=== PATIENT | female | born 1960 | race African-American/Black ===

== ENCOUNTER 2017-01-10 17:01 | Inpatient (IN) ==
[2017-01-10] MEDS ORDERED: ASPIRIN PO STA (17:11)
[2017-01-10] MEDS ORDERED: NITROGLYCERIN SL PRN (17:11)
[2017-01-10 17:42] LABS: MANUAL DIFF NEEDED? NO
--- NOTE | 2017-01-10 17:43 | ED EKG INTERP ---
EKG Interpretation - EKG Time of EKG reading by physician:: 17:11 EKG Read and Signed by:: Darrion Morelos EKG Interpretation (*Must complete 3 of following elements*): Abnormal ( inferior infarct age undetermined ; anterior infarct age undetermined; ST and Marked T wave abnormality consider lateral ischemia) Rate: 54 Rhythm: sinus tiago with fusion complexes [place]: left QRS: normal Attestation - Scribe Verification/Attestation Scribe:: Taylor Cheema Acting as Scribe for:: Darrion Morelos Scribe documention review:: This chart was documented by a scribe and accurately reflects the service the provider performed and the decisions made by the provider. Physician Attestation - Physician Attestation I, the provider, attest to the following statement:: Darrion Morelos Physician documentation Attestation:: This documentation recorded by the scribe accurately reflects the service I personally performed and the decisions made by me.
[2017-01-10 17:50] LABS: BASO% 0.5 % (0.0-0.8); EOS# 0.16 X1000 (0.0-0.7); EOS% 2.5 % (0.0-10.0); HEMATOCRIT 40.9 % (37.0-47.0); HEMOGLOBIN 13.7 g/dL (12.0-16.0); LYMPH# 3.08 X1000 (1.2-3.4); LYMPH% 48.6 % (20.5-51.1); MCH 28.9 PG (27-31); MCHC 33.5 g/dL (33-37); MCV 86.3 FL (81-99); MONO# 0.62 X1000 (0.11-0.59); MONO% 9.8 % (1.7-9.3); MPV 9.8 FL (7.4-10.4); NEUT% 38.6 % (42.2-75.2); PLT 219 X1000 (130-400); RBC 4.74 XMIL (4.2-5.4)
[2017-01-10 18:04] LABS: INR 1.02; PROTIME 10.4 Seconds (9.2-11.7); PTT 24.7 Seconds (22.0-36.0)
[2017-01-10 18:13] LABS: AGAP 18; ALBUMIN 4.3 g/dL (3.5-5.0); ALKALINE PHOSPHATASE 72 U/L (32-104); BUN 16 mg/dL (8-22); CHLORIDE 101 mmol/L (98-107); COSMO 281; GOT 47 U/L (10-30); GPT 30 U/L (10-36); MAGNESIUM 1.9 mg/dL (1.5-2.7); POTASSIUM 3.4 mmol/L (3.5-5.1); SODIUM 140 mmol/L (136-145); TCO2 21 mmol/L (25-35); TOTAL BILIRUBIN 0.44 mg/dL (0.20-1.00); TOTAL PROTEIN 7.6 g/dL (6.3-8.3)
[2017-01-10 18:14] LABS: CK PROFILE 334 U/L (24-173)
[2017-01-10 18:31] LABS: CK INDEX 6.4 (0.0-2.5); CK-MB 21.43 ng/mL (0.0-5.0)
--- NOTE | 2017-01-10 18:48 | PROVIDER DOCUMENTATION ---
HPI-Chest Pain <Willy Barbosa - Last Filed: 01/10/17 19:15> - General Source: patient <Leticia Sprague - Last Filed: 01/10/17 19:21> - General Chief Complaint: Chest Pain Stated Complaint: CP Time Seen by Provider: 01/10/17 18:37 Allergies/Adverse Reactions: Patient Allergies Allergy/AdvReac Type Severity Reaction Status Date / Time No Known Allergies Allergy Verified 04/19/14 18:31 Home Medications: Home Medication List Medication Instructions Recorded Confirmed Last Taken Type Ketorolac [Toradol] 10 mg PO 4XDAY PRN PRN #20 tablet 04/19/14 Unknown Rx LISINOpril [Prinivil] 10 mg PO DAILY #30 tablet 04/19/14 Unknown Rx Tramadol [Ultram] 50 mg PO Q6H PRN PRN #20 tablet 04/19/14 Unknown Rx - History of Present Illness-CP Nature of Presenting Problem: 56 y/o F smoker with history of HTN, HLD, ?MA (2012) history presents with complaint of central chest pain radiating to back and left arm that began yesterday. Pain is described as 8/10 soreness. PPain began around 6am upon awakening while lying in bed. She went on to work and worked a 12 hour shift. Pain lasted all day until she laid down that night. Patient reports increased emotional stress yesterday. Pain began again this morning when getting out of bed this morning and has been constant again all day. She left work early today due to chest pain. 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 Reports SOB with exertion x years. No aggravating or relieving factors. Last stress test 2 years ago normal. Never had a cardiac cath. 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 Current PCP is Dr. Mendoza. (Leticia Sprague) Review of Systems - Adult - REVIEW OF SYSTEMS - ADULT Constitutional: reports: no symptoms reported. denies: chills, fever Eyes: reports: no symptoms reported Ears, Nose, Mouth & Throat: reports: no symptoms reported Cardiovascular: reports: see HPI Respiratory: reports: see HPI Gastrointestinal: reports: no symptoms reported. denies: nausea, vomiting Genitourinary: reports: no symptoms reported Musculoskeletal: reports: back pain Integumentary: reports: no symptoms reported Neurological: reports: no symptoms reported. denies: dizziness/vertigo, headache/migraines Psychiatric: reports: no symptoms reported Endocrine: reports: no symptoms reported Hematologic/Lymphatic: reports: no symptoms reported Allergic/Immunologic: reports: no symptoms reported All Other Systems: Reviewed and Negative <Leticia Sprague - Last Filed: 01/10/17 19:21> Past History - Adult - PAST MEDICAL HISTORY-ADULT Review of Records: reports: Nursing Assessment Review, Medications Reviewed Major Childhood Illnesses: reports: denies history Cardiovascular: reports: HTN, hyperlipidemia - PRIOR SURGERIES/PROCEDURES Surgical/Procedure History: reports: none - PRIOR HOSPITALIZATIONS Prior Hospitalizations: reports: none - IMMUNIZATION STATUS Childhood Immunizations: See Nurse Assessment Flu Vaccine: See Nurse Assessment - FAMILY HISTORY Family History: reviewed, not pertinent <Leticia Sprague - Last Filed: 01/10/17 19:21> Physical Exam-General - PHYSICAL EXAM-ADULT Initial Vital Signs Reviewed: Yes - CONSTITUTIONAL General Appearance: appears well, alert, no apparent distress - EYES Eyes: PERRL/EOMI, pink conjunctivae - HEAD, EARS, NOSE, MOUTH & THROAT HENMT: normocephalic/atraumatic, moist mucous membranes - NECK Neck: non-tender, full range of motion, supple, normal inspection - RESPIRATORY Respiratory: chest non-tender, lungs clear, normal breath sounds, no pleuratic chest pain, no respiratory distress, no accessory muscle use - CARDIOVASCULAR Cardiovascular: normal peripheral pulses, regular rate, rhythm, no edema, no gallop, no JVD, no murmur - GASTROINTESTINAL (ABDOMEN) Abdominal Exam: normal bowel sounds, non tender, soft - SKIN Integumentary: normal color, normal turgor, warm/dry - NEUROLOGIC Neurologic: grossly normal, no motor/sensory deficits - PSYCHIATRIC Psych/Mental Status: normal mood/affect, normal thought content, normal thought process, oriented x 3 <Leticia Sprague - Last Filed: 01/10/17 19:21> Progress - CONSULTS/PCP/HOSPITALIST Notification #1 *Consult/PCP/Hospitalist*: Dr Blevins (Dr Mendoza customer care consultant ) Time Discussed: 19:02 Reason/Comments: admitt Consult Disposition: other (Deferred to the Hospitalist) #2 Consult: Dr Greer (Cardilogist) Time Discussed: 19:17 Reason/Comments: Plan of care Consult Disposition: Admit (Admit to hospitalist and he will consult) <Willy Barbosa - Last Filed: 01/10/17 19:15> - XRAY 1 XRAY Study: Chest XRAY Interpretation: NAP <Leticia Sprague - Last Filed: 01/10/17 19:21> - PLAN OF CARE/RESULTS Progress/Plan/Lab Results: Laboratory Tests 01/10/17 01/10/17 01/10/17 17:15 17:15 17:15 WBC 6.34 RBC 4.74 Hgb 13.7 Hct 40.9 MCV 86.3 MCH 28.9 MCHC 33.5 RDW Std Deviation 14.1 Plt Count 219 MPV 9.8 Immature Gran % (Auto) 0.0 Neut % (Auto) 38.6 L Lymph % (Auto) 48.6 [place] % (Auto) 9.8 H Eos % (Auto) 2.5 Baso % (Auto) 0.5 Immature Gran # (Auto) 0.00 Neut # (Auto) 2.45 Lymph # (Auto) 3.08 [place] # (Auto) 0.62 H Eos # (Auto) 0.16 Baso # (Auto) 0.03 PT INR PTT (Actin FS) D-Dimer 0.15 Sodium 140 Potassium 3.4 L Chloride 101 Carbon Dioxide 21 L Anion Gap 18 BUN 16 Creatinine 0.7 Estimated GFR/1.73 m2 > 60 BUN/Creatinine Ratio 23 Glucose 97 Calculated Osmolality 281 Calcium 9.0 Magnesium 1.9 Total Bilirubin 0.44 AST 47 H ALT 30 Alkaline Phosphatase 72 Creatine Kinase 334 H Creatine Kinase Index 6.4 H CK-MB (CK-2) 21.43 H Troponin T [id number]-J-Vtvvxhbyvjb Pept Total Protein 7.6 Albumin 4.3 Globulin 3.3 Albumin/Globulin Ratio 1.3 01/10/17 01/10/17 01/10/17 17:15 17:15 17:15 WBC RBC Hgb Hct MCV MCH MCHC RDW Std Deviation Plt Count MPV Immature Gran % (Auto) Neut % (Auto) Lymph % (Auto) [place] % (Auto) Eos % (Auto) Baso % (Auto) Immature Gran # (Auto) Neut # (Auto) Lymph # (Auto) [place] # (Auto) Eos # (Auto) Baso # (Auto) PT 10.4 INR 1.02 PTT (Actin FS) 24.7 D-Dimer Sodium Potassium Chloride Carbon Dioxide Anion Gap BUN Creatinine Estimated GFR/1.73 m2 BUN/Creatinine Ratio Glucose Calculated Osmolality Calcium Magnesium Total Bilirubin AST ALT Alkaline Phosphatase Creatine Kinase Creatine Kinase Index CK-MB (CK-2) Troponin T 0.343 H* Hxn-R-Svadwqwbnzv Pept 1129 H Total Protein Albumin Globulin Albumin/Globulin Ratio Orders Category Date Time Status Cardiac Monitoring DIRECTED Care 01/10/17 17:11 Active Saline Loc NOW Care 01/10/17 17:11 Active CHEST-2 VIEWS [RAD] Stat Exams 01/10/17 17:11 Taken CBC WITH ELECTRONIC DIFF [HEME] Stat Lab 01/10/17 17:15 Completed CK PROFILE [SP CHEM] Stat Lab 01/10/17 17:15 Completed COMPREHENSIVE METABOLIC PANEL [CHEM] Stat Lab 01/10/17 17:15 Completed D-DIMER [CHEM] Stat Lab 01/10/17 17:15 Completed MAGNESIUM [CHEM] Stat Lab 01/10/17 17:15 Completed PRO B-NATRIURETIC PEPTIDE Stat Lab 01/10/17 17:15 Completed PROTIME WITH INR [COAG] Stat Lab 01/10/17 17:15 Completed PTT [COAG] Stat Lab 01/10/17 17:15 Completed TROPONIN T Stat Lab 01/10/17 17:15 Completed Aspirin Med 01/10/17 17:11 Discontinued 325 mg PO STAT STA Metoprolol [Lopressor] Med 01/10/17 18:58 Discontinued 5 mg IV NOW ONE Morphine Med 01/10/17 18:58 Discontinued 4 mg IV NOW ONE Nitroglycerin Med 01/10/17 19:01 Stop Req 0.5 inch TOP NOW ONE Nitroglycerin Med 01/10/17 19:04 Discontinued 1 inch TOP NOW ONE Nitroglycerin Sl [Nitroglycerin] Med 01/10/17 17:11 Discontinued 0.4 mg SL Q5M PRN PRN EKG [EKG] Stat Ther 01/10/17 17:11 Ordered Vital Signs Temp Pulse Resp BP Pulse Ox 01/10/17 18:43 67 19 152/102 100 01/10/17 17:09 98.6 F 58 L 18 145/82 100 No Known Allergies Allergy (Verified 04/19/14 18:31) Ketorolac [Toradol] 10 mg PO 4XDAY PRN PRN #20 tablet 04/19/14 LISINOpril [Prinivil] 10 mg PO DAILY #30 tablet 04/19/14 Tramadol [Ultram] 50 mg PO Q6H PRN PRN #20 tablet 04/19/14 Laboratory 01/10/17 01/10/17 01/10/17 17:15 17:15 17:15 WBC RBC Hgb Hct MCV MCH MCHC RDW Std Deviation Plt Count MPV Immature Gran % (Auto) Neut % (Auto) Lymph % (Auto) [place] % (Auto) Eos % (Auto) Baso % (Auto) Immature Gran # (Auto) Neut # (Auto) Lymph # (Auto) [place] # (Auto) Eos # (Auto) Baso # (Auto) PT 10.4 INR 1.02 PTT (Actin FS) 24.7 D-Dimer Sodium Potassium Chloride Carbon Dioxide Anion Gap BUN Creatinine Estimated GFR/1.73 m2 BUN/Creatinine Ratio Glucose Calculated Osmolality Calcium Magnesium Total Bilirubin AST ALT Alkaline Phosphatase Creatine Kinase Creatine Kinase Index CK-MB (CK-2) Troponin T 0.343 H* Dsv-S-Gfrivoxfdcg Pept 1129 H Total Protein Albumin Globulin Albumin/Globulin Ratio 01/10/17 01/10/17 01/10/17 17:15 17:15 17:15 WBC 6.34 RBC 4.74 Hgb 13.7 Hct 40.9 MCV 86.3 MCH 28.9 MCHC 33.5 RDW Std Deviation 14.1 Plt Count 219 MPV 9.8 Immature Gran % (Auto) 0.0 Neut % (Auto) 38.6 L Lymph % (Auto) 48.6 [place] % (Auto) 9.8 H Eos % (Auto) 2.5 Baso % (Auto) 0.5 Immature Gran # (Auto) 0.00 Neut # (Auto) 2.45 Lymph # (Auto) 3.08 [place] # (Auto) 0.62 H Eos # (Auto) 0.16 Baso # (Auto) 0.03 PT INR PTT (Actin FS) D-Dimer 0.15 Sodium 140 Potassium 3.4 L Chloride 101 Carbon Dioxide 21 L Anion Gap 18 BUN 16 Creatinine 0.7 Estimated GFR/1.73 m2 > 60 BUN/Creatinine Ratio 23 Glucose 97 Calculated Osmolality 281 Calcium 9.0 Magnesium 1.9 Total Bilirubin 0.44 AST 47 H ALT 30 Alkaline Phosphatase 72 Creatine Kinase 334 H Creatine Kinase Index 6.4 H CK-MB (CK-2) 21.43 H Troponin T Ysf-D-Povbjicwmpc Pept Total Protein 7.6 Albumin 4.3 Globulin 3.3 Albumin/Globulin Ratio 1.3 (Leticia Sprague) Departure <Willy Barbosa - Last Filed: 01/10/17 19:15> - Departure Time of Disposition Order: 19:20 Certified Medical Emergency: Emergent <Leticia Sprague - Last Filed: 01/10/17 19:21> - Departure DIAGNOSIS: Chest pain, Abnormal EKG, Cardiac enzymes elevated Disposition: ADMITTED INPATIENT 09 Condition: Stable Referrals: None,PCP [Primary Care Provider] - Attestation - Scribe Verification/Attestation Scribe:: Willy Barbosa Acting as Scribe for:: Dev Grissom Scribe documention review:: This chart was documented by a scribe and accurately reflects the service the provider performed and the decisions made by the provider. - Physician/ SANAZ Attestation Patient care was provided by Advanced Practice Provider:: Yes Advanced Practice Provider documentation review:: The Mid-level provider documentation, treatment plan and medical decision making was reviewed by the physician who agrees with all treatment and medical decision making by the MLP. The physician spent face to face time with patient:: Yes (Dr Grissom examined pt and agrees with the plan of care) <Willy Barbosa - Last Filed: 01/10/17 19:15> - Physician/ SANAZ Attestation Patient care was provided by Advanced Practice Provider:: Yes Advanced Practice Provider:: Leticia Sprague Advanced Practice Provider documentation review:: The Mid-level provider documentation, treatment plan and medical decision making was reviewed by the physician who agrees with all treatment and medical decision making by the MLP. The physician spent face to face time with patient:: Yes <Leticia Sprague - Last Filed: 01/10/17 19:21> Physician Attestation
[2017-01-10] MEDS ORDERED: LOPRESSOR IV ONE (18:58)
[2017-01-10] MEDS ORDERED: MORPHINE IV ONE (18:58)
[2017-01-10] MEDS ORDERED: NITROGLYCERIN TOP ONE ×2 (19:01→19:04)
[2017-01-10] MEDS ORDERED: LOVENOX 1 MG/KG SUBQ ONE (19:23)
--- NOTE | 2017-01-10 19:25 | ED EKG INTERP ---
EKG Interpretation - EKG Time of EKG reading by physician:: 19:15 EKG Read and Signed by:: Dev Grissom EKG Interpretation (*Must complete 3 of following elements*): Abnormal Rate: 55 Rhythm: Sinus Bradycardia Comments: Septal infarct, age undetermined, Marked T wave abnormality Attestation - Scribe Verification/Attestation Scribe:: Willy Barbosa Acting as Scribe for:: Dev Grissom Scribe documention review:: This chart was documented by a scribe and accurately reflects the service the provider performed and the decisions made by the provider.
[2017-01-10] MEDS ORDERED: LOVENOX SUBQ ONE (19:45)
[2017-01-10 20:37] LABS: CK INDEX 6.4 (0.0-2.5); CK-MB 22.1 ng/mL (0.0-5.0)
[2017-01-10] MEDS ORDERED: MORPHINE IV PRN (21:27)
[2017-01-10] MEDS ORDERED: TYLENOL PO PRN (21:27)
[2017-01-10] MEDS ORDERED: ZOFRAN IV PRN (21:27)
[2017-01-10] MEDS: NITROGLYCERIN TOP SCH (21:42)
[2017-01-10] MEDS: LIPITOR PO SCH (22:39)
--- NOTE | 2017-01-11 01:05 | HISTORY AND PHYSICAL ---
PRIMARY CARE PROVIDER: Dr. Fartun Mendoza CHIEF COMPLAINT: Chest pain. HISTORY OF PRESENT ILLNESS: This is a 56-year-old female with a history of hypertension, hyperlipidemia, who presents to [place] [facility] related to chest pain. She states that the chest pain started yesterday. It was roughly 8/10, midsternal. It did radiate into her left arm and back, however, she went to work. They checked her blood pressure. It was mildly elevated. She continued to work the rest of her shift. Today she went back and continued having chest pain. They checked her blood pressure again, still elevated so she came into the emergency room. Her troponins were noted to be elevated at 0.343. Her CK was elevated at 334 and her CK index was 6.4. Upon 2 hour repeat, her CKs were noted to be increasing, however, her troponin is decreasing. CK index remained the same. [facility], Dr. Colbert, cardiology, has been made aware of the patient. PAST MEDICAL HISTORY: 1. Hypertension. 2. Hyperlipidemia. 3. Tobacco use. SURGICAL HISTORY: Ovaries removed. SOCIAL HISTORY: She smokes 3 Black and Mild cigars or cigarettes, I am unsure what this is, a day. Smoking cessation was gone over with the patient. She states that she will work on trying to stop. She denies alcohol use or illicit drug use or abuse. FAMILY HISTORY: Mother has congestive heart failure and hypertension. Sister has congestive heart failure. HOME MEDICATIONS: The list is not available at this time. The patient states that she takes 2 blood pressure medicines and a cholesterol medicine, unknown which type. Order was placed for nursing to reconcile home medications. ALLERGIES: No known drug allergies. REVIEW OF SYSTEMS: Fourteen point review of systems conducted with the patient. She denied associated symptoms with chest pain such as nausea, vomiting, dizziness, diaphoresis. Pertinent positives for admission were listed above in the HPI. PHYSICAL EXAMINATION: VITAL SIGNS: Temperature 98.4 degrees, pulse 55, respirations 18, blood pressure 149/87, oxygen saturation 99% on 2 L nasal cannula. GENERAL: A pleasant 56-year-old female lying in the CICU bed in no acute distress. Chest pain has resolved. Answers all questions appropriately. HEENT: Head is atraumatic, normocephalic. Pupils equal, round, reactive to light. Extraocular eye movement intact. Sclerae is anicteric. Mild erythema noted. Conjunctivae is not pale. Oral mucosa is moist. NECK: Supple. No JVD. No thyromegaly. Trachea is midline. CARDIAC: Regular rhythm. Sinus bradycardia on monitor. S1-S2 appreciated. No murmurs, gallops, rubs. LUNGS: Clear auscultation bilaterally. No rhonchi, wheezes or rales. Symmetrical rise and fall with respirations. ABDOMEN: Soft, nondistended, nontender. Bowel sounds present in all 4 quadrants. Normoactive. No pulsatile mass. No organomegaly. EXTREMITIES: No clubbing, cyanosis, or edema. 2+ pedal pulses bilaterally. GENITOURINARY: Patient voids, otherwise deferred. NEUROLOGICAL: Alert orient x3. Cranial nerves 2-12 grossly intact. SKIN: Warm, dry, intact. No acute lesions or rash. LABORATORY DATA: CBC within normal limits. Coags within normal limits. Potassium 3.4 on chemistry profile. AST 37, ALT 30. CK and troponin noted to be elevated, 345 CK on repeat. CK index 6.4, troponin 0.343, trending downward to 0.302 on repeat. ProBNP mildly elevated at 1129. ASSESSMENT AND PLAN: 1. Kks-FF-fbxrtqhox myocardial infarction. Dr. Colbert, cardiology, has been made aware. Patient was given 1 mg/kg Lovenox in the emergency room, 325 of aspirin was given in the emergency room will be continued daily. She was given metoprolol 5 mg IV. Nursing will be asked to reconcile home medications. Nitroglycerin 1 inch will be used topically q.6h hours. 2. Hypertension. We used nitroglycerin at this time. The patient is mildly bradycardic, unsure whether she is on a beta quang at this time. Nursing has been asked to reconcile home medications. We will ask Dr. Colbert, cardiology, to help with maximizing patient's medications. 3. Hyperlipidemia. A direct lipid profile has been ordered. The patient states that she takes a medication for lipid, unknown which one at this time. We will give atorvastatin 40 mg p.o. at bedtime at this time which can be changed at a later date if needed. 4. Tobacco use. Smoking cessation was gone over with the patient. She states that she will attempt to cut back on this. Patient will likely receive a heart catheterization in the a.m. We will trend cardiac enzymes. Further orders per Cardiology. Dictated by KARLOS Jarvis for Josias Sutton MD
[2017-01-11 04:06] LABS: UR AMPHETAMINES QUAL NONE DETECTED (NONE DETECT); UR BARBITUATES QUAL NONE DETECTED (NONE DETECT); UR BENZODIAZEPIN QUAL NONE DETECTED (NONE DETECT); UR CANNABINOIDS QUAL PRESUMPTIVE POSITIVE (NONE DETECT); UR COCAINE QUAL NONE DETECTED (NONE DETECT); UR METHADONE QUAL NONE DETECTED (NONE DETECT); UR OPIATES QUAL NONE DETECTED (NONE DETECT); UR OXYCODONE QUAL NONE DETECTED (NONE DETECT); UR PCP QUAL NONE DETECTED (NONE DETECT)
[2017-01-11] MEDS: NITROGLYCERIN TOP SCH ×4 (04:29→22:47)
--- NOTE | 2017-01-11 05:22 | EKG Report ---
Test Performed on : 01/10/2017 7:15:09 PM Test Reason : CP Blood Pressure : / mmHG Vent. Rate : 055 BPM Atrial Rate : 055 BPM P-R Int : 132 ms QRS Dur : 078 ms QT Int : 512 ms P-R-T Axes : 050 011 196 degrees QTc Int : 489 ms Sinus bradycardia. Septal infarct (cited on or before 19-APR-2014) Marked T wave abnormality, consider anterolateral ischemia Abnormal ECG When compared with ECG of 10-JAN-2017 17:11, (Unconfirmed) fusion complexes are no longer present QRS axis shifted right Criteria for Inferior infarct are no longer present Questionable change in initial forces of Septal leads T wave inversion more evident in Inferior leads Unconfirmed Result
[2017-01-11 05:24] LABS: MANUAL DIFF NEEDED? NO
--- NOTE | 2017-01-11 05:25 | EKG Report ---
Test Performed on : 01/10/2017 5:11:56 PM Test Reason : CP Blood Pressure : / mmHG Vent. Rate : 054 BPM Atrial Rate : 054 BPM P-R Int : 128 ms QRS Dur : 072 ms QT Int : 504 ms P-R-T Axes : 057 -49 113 degrees QTc Int : 477 ms Sinus bradycardia. with fusion complexes Left axis deviation Inferior infarct , age undetermined Anterior infarct (cited on or before 19-APR-2014) ST & Marked T wave abnormality, consider lateral ischemia Abnormal ECG When compared with ECG of 19-APR-2014 16:24, Significant changes have occurred Unconfirmed Result
[2017-01-11 05:27] LABS: BASO% 0.3 % (0.0-0.8); EOS# 0.27 X1000 (0.0-0.7); EOS% 4.2 % (0.0-10.0); HEMATOCRIT 41.9 % (37.0-47.0); HEMOGLOBIN 13.7 g/dL (12.0-16.0); LYMPH# 3.28 X1000 (1.2-3.4); LYMPH% 51.2 % (20.5-51.1); MCH 28.5 PG (27-31); MCHC 32.7 g/dL (33-37); MCV 87.3 FL (81-99); MONO# 0.74 X1000 (0.11-0.59); MONO% 11.5 % (1.7-9.3); MPV 9.4 FL (7.4-10.4); NEUT% 32.8 % (42.2-75.2); PLT 208 X1000 (130-400)
[2017-01-11 05:43] LABS: HDL 72 mg/dL (45-65); LDL 98 mg/dL; TRIGLYCERIDES 117 mg/dL (35-135); VLDL 23 mg/dL
[2017-01-11] MEDS ORDERED: KLOR-CON PO ONE (05:54)
[2017-01-11] MEDS: PRILOSEC PO SCH (06:01)
--- NOTE | 2017-01-11 07:36 | Diag Imaging Result Document ---
PROCEDURE NAME: CHEST-2 VIEWS - 01/10/2017 CHEST X-RAY, 2 VIEWS: COMPARISON: 05/18/2011. FINDINGS: The lungs are normally expanded and clear. Heart size and mediastinal contours are normal. No pneumothorax or pleural effusion. IMPRESSION: Negative exam.
[2017-01-11] MEDS: ASPIRIN PO SCH (08:26)
--- NOTE | 2017-01-11 08:43 | CONSULTATION ---
DATE OF CONSULTATION: 01/11/2017 IMPRESSION: 1. Chronic chest discomfort with mildly elevated troponin and strikingly abnormal ECG. Suspect acute coronary syndrome. 2. Hypertensive cardiovascular disease. 3. Hypercholesterolemia. 4. Chronic cigarette use of modest intensity. RECOMMENDATIONS: Favor pursuit of left heart catheterization, selective coronary angiography, and possible coronary intervention thereafter. The indication of potential hazards were reviewed with the patient, and she wished to proceed. HISTORY: This 56-year-old female with a past history of longstanding hypertension, hyperlipidemia, and modest chronic cigarette use was admitted through the emergency room last night for evaluation of chest discomfort, abnormal troponin, and abnormal ECG suspicious for acute coronary syndrome. She works at a [employer] plant. She had some discord at work the day before yesterday and experienced some palpitations as well as a several-hour episode of chest pressure. Chest pressure faded away after she went home and rested. Yesterday, there was some additional stress at work, and she had further recurrence of chest pressure. This persisted in a low-grade fashion, and she came to the emergency room for evaluation. Her symptoms were relieved in the emergency room by nitroglycerin and narcotic analgesic. She has not had any recurrence. She has had some headache with topical nitroglycerin paste but otherwise remains asymptomatic since hospitalization. She recalls having a fainting episode a year and a half ago. ECG was abnormal, and a noninvasive cardiac workup including stress test was reportedly benign. PAST MEDICAL HISTORY: 1. Longstanding hypertension. 2. Hypercholesterolemia. 3. Status post bilateral oophorectomy. 4. She has no known drug allergies. MEDICATIONS PRIOR TO ADMISSION: As listed. SOCIAL HISTORY: She smokes less than a half-pack of cigarettes per day. 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 FAMILY HISTORY: Negative for premature coronary disease but positive for hypertension and congestive heart failure. REVIEW OF SYSTEMS: Pulmonary: Negative. Gastrointestinal: Negative. Constitutional: Negative. Remainder of review of systems negative with 14 total systems reviewed. PHYSICAL EXAMINATION: General: This is a pleasant middle-aged female in no distress. Vital signs: Blood pressure 114/64, heart rate 56 and regular. HEENT: Extraocular movements appear intact. Mucous membranes are moist. Neck: Supple without jugular venous distention. There are no carotid bruits. Chest: Clear to auscultation. Cardiac: Exam reveals a regular rate and rhythm without appreciable murmur or gallop. Abdomen: Soft, nontender. Bowel sounds are normal. Extremities: Without edema. Neurologic: Exam reveals her to be alert and fully oriented. Speech is fluent. She moves all 4 extremities equally well. Skin: Warm and dry. Psychiatric: Exam reveals her mood to be appropriate. ECG: ECG demonstrates sinus rhythm and anterolateral T-wave inversion, consider anterolateral ischemia. LABORATORY DATA: Troponin abnormal at 0.3.
[2017-01-11 09:16] LABS: AGAP 18; BUN 16 mg/dL (8-22); CALCIUM 9.6 mg/dL (8.8-10.2); CHLORIDE 101 mmol/L (98-107); COSMO 283; SODIUM 142 mmol/L (136-145); TCO2 23 mmol/L (25-35)
--- NOTE | 2017-01-11 10:38 | EKG Report ---
Test Performed on : 01/11/2017 09:17:53 AM Test Reason : nstemi Blood Pressure : / mmHG Vent. Rate : 053 BPM Atrial Rate : 053 BPM P-R Int : 122 ms QRS Dur : 080 ms QT Int : 622 ms P-R-T Axes : 055 031 211 degrees QTc Int : 583 ms Sinus bradycardia. Marked T wave abnormality, consider anterolateral ischemia Prolonged QT Abnormal ECG When compared with ECG of 10-JAN-2017 19:15, (Unconfirmed) T wave inversion more evident in Inferior leads QT has lengthened Confirmed by Benjamin LAINEZ, Josh Jimenez ([id number]) on 01/11/2017 4:48:48 PM
[2017-01-11 10:42] LABS: MANUAL DIFF NEEDED? NO
[2017-01-11 10:45] LABS: BASO% 0.5 % (0.0-0.8); EOS# 0.06 X1000 (0.0-0.7); IMM GRAN# 0.02 X1000 (0.0-0.04); IMM GRAN% 0.3 % (0.0-0.5); LYMPH# 2.09 X1000 (1.2-3.4); LYMPH% 36.2 % (20.5-51.1); MCH 28.7 PG (27-31); MCHC 33.3 g/dL (33-37); MCV 86.1 FL (81-99); MONO# 0.45 X1000 (0.11-0.59); MONO% 7.8 % (1.7-9.3); MPV 9.7 FL (7.4-10.4); NEUT% 54.2 % (42.2-75.2); PLT 202 X1000 (130-400); RBC 4.53 XMIL (4.2-5.4)
[2017-01-11 10:59] LABS: AGAP 17; ALBUMIN 4.2 g/dL (3.5-5.0); ALKALINE PHOSPHATASE 69 U/L (32-104); BUN 23 mg/dL (8-22); CALCIUM 8.9 mg/dL (8.8-10.2); CHLORIDE 101 mmol/L (98-107); COSMO 278; GOT 41 U/L (10-30); GPT 29 U/L (10-36); POTASSIUM 4.2 mmol/L (3.5-5.1); SODIUM 138 mmol/L (136-145); TCO2 20 mmol/L (25-35); TOTAL BILIRUBIN 0.48 mg/dL (0.20-1.00); TOTAL PROTEIN 7.4 g/dL (6.3-8.3)
[2017-01-11 11:34] LABS: INR 1.01; PROTIME 10.3 Seconds (9.2-11.7); PTT 22.3 Seconds (22.0-36.0)
[2017-01-11] MEDS ORDERED: HEPARIN 1000 UNITS/NS 1,000 ML ONE (11:38)
[2017-01-11] MEDS ORDERED: HEPARIN ONE (11:45)
[2017-01-11] MEDS ORDERED: NS 1,000 ML ONE (14:21)
[2017-01-11] MEDS ORDERED: CLAVE TWINSITE 32 IN 11959 ONE (14:21)
[2017-01-11] MEDS ORDERED: VERSED ONE (14:21)
[2017-01-11] MEDS ORDERED: DILAUDID ONE (14:21)
[2017-01-11] MEDS ORDERED: CLAVE PUMP SET NO FILTER 12260 ONE (14:22)
--- NOTE | 2017-01-11 15:39 | CARDIAC CATH REPORT ---
PROCEDURE NAME: - INDICATION: Non ST elevation myocardial infarction. PROCEDURES PERFORMED: 1. Left heart catheterization. 2. Selective coronary angiography. 3. Left ventriculogram. PROCEDURE IN DETAIL: Ms Nguyễn was brought to catheterization laboratory in fasting state. Informed consent was obtained. Prepped in usual fashion. She was anesthetized over the right radial artery after Josh's test was proved adequate. A 5-Guyanese sheath was placed via true Seldinger technique. Radial cocktail was administered. Catheters were introduced and hemodynamic measurements made in the ascending and thoracic aorta. Coronary angiography of the right and left coronary arteries was performed using a 4-5 TIG. The left ventriculogram and left heart catheterization was performed using an angled pigtail catheter. At conclusion of procedure, all sheaths and catheters were removed. TR band was left inflated at 10 mL of air. Good hemostasis. Good capillary refill. No apparent complications. There was 5 mL of blood loss. FINDINGS: 1. The left main appears normal. 2. Left anterior descending originates from the left main. It appears normal. 3. Circumflex has scant luminal irregularities in the mid vessel, but the rest of the territory appears normal. 4. Right coronary artery is a dominant vessel. The proximal vessel has a discrete mild lesion. The remainder of the mid distal vessel appears normal. 5. Left ventriculogram demonstrates an EF of around 40%. There is a hyperdynamic base with a hypokinetic distal LV cavity. 6. Aortic blood pressure is 90/46. Left ventricle pressure is 94/1 with an LVEDP of 8. ASSESSMENT: Ms. Nguyễn is a 56-year-old, black female with a history of hypertension, who presented with chest discomfort concerning for coronary ischemia and elevated enzymes. PLAN: She has no flow-limiting lesions in her coronary arteries. She does need secondary risk factor modification. Her left ventriculogram as well as her clinical history seems most consistent with a Takotsubo type cardiomyopathy. We recommend medical therapy at this point. I have relayed the information to Dr. Colbert, her primary soldering machine tender.
[2017-01-11] MEDS: LIPITOR PO SCH (21:20)
[2017-01-12] MEDS: NITROGLYCERIN TOP SCH ×4 (03:29→21:31)
[2017-01-12] MEDS: PRILOSEC PO SCH (06:03)
[2017-01-12 06:05] LABS: MAGNESIUM 1.9 mg/dL (1.5-2.7)
--- NOTE | 2017-01-12 06:11 | EKG Report ---
Test Performed on : 01/11/2017 5:25:53 PM Test Reason : post ekg Blood Pressure : / mmHG Vent. Rate : 061 BPM Atrial Rate : 061 BPM P-R Int : 124 ms QRS Dur : 072 ms QT Int : 564 ms P-R-T Axes : 052 027 208 degrees QTc Int : 567 ms Normal sinus rhythm. with sinus arrhythmia. ST & Marked T wave abnormality, consider anterolateral ischemia Prolonged QT Abnormal ECG When compared with ECG of 11-JAN-2017 09:17, No significant change was found Confirmed by Benjamin LAINEZ, Josh Jimenez ([id number]) on 01/12/2017 9:15:58 AM
[2017-01-12] MEDS ORDERED: PREMPRO PO SCH (09:00)
[2017-01-12] MEDS ORDERED: PREMARIN PO SCH (09:00)
[2017-01-12] MEDS: COREG PO SCH (10:06)
[2017-01-12] MEDS: ASPIRIN PO SCH (10:06)
[2017-01-12] MEDS: COZAAR PO SCH (10:06)
[2017-01-12] MEDS: PRAVACHOL PO SCH (10:06)
[2017-01-12] MEDS: PROVERA PO SCH (10:07)
[2017-01-12] MEDS: PREMARIN PO SCH (10:07)
--- NOTE | 2017-01-12 16:51 | ECHO REPORT ---
ORDER DATE: 01/11/2017 INTERPRETING PHYSICIAN: Dr. Sanders REQUESTING PHYSICIAN: CLINICAL INDICATIONS: This is a 56-year-old female with takotsubo, weakness, chest pain, dizziness. M-MODE MEASUREMENTS: Right ventricle: 2.9 cm. Left ventricle end diastole: 4.2 cm. Left ventricle end systole: 2.4 cm. Posterior wall: 1.1 cm. Interventricular septum: 1.2 cm. Left atrium: 3.4 cm. Aortic root: 3.0 cm. SUMMARY OF 2-DIMENSIONAL IMAGIN. The global left ventricular systolic function is actually very good. Ejection fraction is very close to 70%. There is no wall motion abnormality. 2. There is a focal akinetic area at the apex of the left ventricle. 3. The right ventricle is normal. 4. The aortic valve looks normal. Color flow mapping is unremarkable. 5. Mitral valve looks normal. Color flow mapping indicates very mild degree of regurgitation. 6. Pulse wave Doppler of mitral inflow is normal. 7. The tissue Doppler of septal and lateral mitral annulus averages 9 cm. 8. There is no diastolic dysfunction. 9. Tricuspid valve looks normal. There is very mild degree of regurgitation. 10.Pulmonary pressure is estimated at 37 mmHg. 11.Pulmonic valve looks normal. Color flow mapping is unremarkable. 12.There is no pericardial effusion, mass or thrombus. CONCLUSIONS: 1. Overall well preserved left ventricular systolic function with focal areas of akinesis at the apex of the left ventricle. Ejection fraction is 70%. 2. Very mild degree of pulmonic and mitral regurgitation. 3. No diastolic dysfunction. 4. Pulmonary pressure is estimated at 37 mmHg. Clinical correlation is recommended.
[2017-01-12] MEDS ORDERED: TYLENOL PO PRN (20:33)
[2017-01-12] MEDS ORDERED: RESTORIL PO PRN (20:33)
[2017-01-12] MEDS ORDERED: DULCOLAX PR PRN (20:33)
[2017-01-12] MEDS ORDERED: KLOR-CON PO PRN ×3 (20:33)
[2017-01-12] MEDS ORDERED: PERCOCET-5 PO PRN (20:33)
[2017-01-12] MEDS ORDERED: MAGNESIUM SULFATE 2 GM in STERILE WATER INJ. 50 ML IV PRN ×4 (20:33)
[2017-01-12] MEDS ORDERED: MAGNESIUM SULFATE 3 GM in NS 100 ML IV PRN (20:33)
[2017-01-12] MEDS ORDERED: XANAX PO PRN (20:33)
[2017-01-12] MEDS ORDERED: NITROGLYCERIN SL PRN (20:33)
[2017-01-12] MEDS ORDERED: MILK OF MAGNESIA PO PRN (20:33)
[2017-01-12] MEDS ORDERED: CEPACOL SORE THROAT LOZENGE MT PRN (20:33)
[2017-01-12] MEDS ORDERED: ZOFRAN IV PRN (20:33)
[2017-01-13] MEDS: NITROGLYCERIN TOP SCH ×2 (03:56→11:07)
[2017-01-13] MEDS: PRILOSEC PO SCH (06:16)
[2017-01-13 08:09] VITALS: BP 142/87
[2017-01-13] MEDS ORDERED: PNEUMOVAX 23 IM ONE (09:00)
[2017-01-13] MEDS ORDERED: FLUZONE QUAD 2016-2017 SYRINGE IM ONE (09:00)
[2017-01-13] MEDS: PRAVACHOL PO SCH (10:53)
[2017-01-13] MEDS: ASPIRIN PO SCH (10:53)
[2017-01-13] MEDS: COZAAR PO SCH (10:53)
[2017-01-13] MEDS: PROVERA PO SCH (10:54)
[2017-01-13] MEDS: COREG PO SCH (10:54)
[2017-01-13] MEDS: PREMARIN PO SCH (10:54)
--- NOTE | 2017-01-14 17:16 | DISCHARGE SUMMARY ---
ADMISSION DATE: 01/10/2017 DISCHARGE DATE: 01/13/2017 DISCHARGING DIAGNOSIS: Chest pain due to stress-induced cardiomyopathy. SECONDARY DIAGNOSES: 1. Hypertension. 2. Hyperlipidemia. 3. Tobacco abuse. 4. History of substance abuse with marijuana. CONSULTANTS: Dr. Wu. PROCEDURES: Cardiac catheterization. Findings are ejection fraction 40%, hyperdynamic base with hypokinetic distal LV cavity. No flow limiting lesions in coronary arteries. BRIEF HISTORY: Please see the H and P that was done by hospitalist. In brief, she is a 56-year- old female who was not seen in my office seen since 2013 with hypertension, hyperlipidemia and tobacco abuse admitted to the hospital with chest pain. She has substantial EKG changes with T-wave inversion, symmetrical in the anterior precordial leads. She also has positive cardiac enzymes. She was treated in the [facility] with nitroglycerin, beta blockers and Lovenox. Patient was pain-free. On the following day the patient had a left heart catheterization showed above findings. It is been diagnosed stress due to cardiomyopathy and started on basically beta blockers and angiotensin receptor blockers. LABORATORY DATA: CBC. White cell count 5.7, hematocrit 39, platelets 202,000. PT/INR is normal. SMA 7. Sodium 138, potassium 4.2, chloride 101, BUN 23, creatinine 0.8. LFTs were normal. ProBNP was 1100. Peak CK 330. Cholesterol 193, HDL 72, LDL is 98. Urine toxicology screen was negative except marijuana. Chest x-ray on 01/10/2017 negative. DISCHARGE INSTRUCTIONS: 1. Flu vaccine 01/13/2017, pneumococcal vaccine 01/13/2017. 2. Pravachol 40 daily, Prempro 1 tablet daily, amlodipine 5 mg daily, losartan 100 daily, Coreg 3.125 daily, nitroglycerin as needed. 3. Quit smoking. 4. Keep the LDL less than 100. 5. Follow up in my office next week. Will give an excuse and return to work on 01/22/2017 and repeat echocardiogram in 2 months.
== END 2017-01-13 12:35 | disposition home or self-care (01) | DRG 287 ==
LOC: ED 17:01 → 3S 17:02
PROVIDERS: ADMIT Internal Medicine; ATTEND Internal Medicine
PROC: 4A023N7 Measurement of Cardiac Sampling and Pressure, Left Heart, Percutaneous Approach (ICD-10-PCS; principal; 2017-01-11)
PROC: B2111ZZ Fluoroscopy of Multiple Coronary Arteries using Low Osmolar Contrast (ICD-10-PCS; 2017-01-11)
PROC: B2151ZZ Fluoroscopy of Left Heart using Low Osmolar Contrast (ICD-10-PCS; 2017-01-11)
DX: I51.81 Takotsubo syndrome (principal); I10 Essential (primary) hypertension; R00.1 Bradycardia, unspecified; E78.5 Hyperlipidemia, unspecified; F17.200 Nicotine dependence, unspecified, uncomplicated; Z23 Encounter for immunization; Z82.49 Family history of ischemic heart disease and other diseases of the circulatory system; Z79.899 Other long term (current) drug therapy
CPT/HCPCS: 71020; 80048; 80053; 80061; 82550; 82553; 82565; 83735; 83880; 84484; 85025; 85379; 85610; 85730; 90732; 93005; 93010; 93306; 93458; 94761; 96372; 96374; G0480; J1170; J1644; J1650; J2250; J2270; J2405; J7030; Q2038; Q9967; 80324; 80345; 80346; 80349; 80353; 80358; 80361; 80365; 83992